=== PATIENT | male | born 1980 | race Caucasian/White ===

== ENCOUNTER → 2016-11-30 | Outpatient (CLI) | payer BC ==
[~2016-11-30] MED LIST: GADOBUTROL 10mMol/10ml INJECTION IV ONE; SALINE FLUSH 10ml SYRINGE ONE
--- NOTE | 2016-11-30 16:08 | DI ---
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 MRA imaging of the head without contrast was acquired. Maximum intensity projection (MIP) reformatted images were produced. 3-dimensional volume rendered imaging of the [place] was performed by the technologist on a dedicated workstation. Contrast: 8 mL of Gadavist Findings: MRI head: The ventricles are of normal size, shape, and contour for the patient's age. A couple tiny punctate T-2/flair white matter hyperintensities, within the normal range for age. The brain stem, cerebellum, and cerebral hemispheres otherwise have a normal morphologic appearance as well as MR signal intensity on all pulse sequences. Following intravenous administration of contrast, no areas of abnormal enhancement are evident. There are no areas of restricted diffusion on diffusion weighted imaging to suggest an acute infarct. There is no evidence of an intracranial mass lesion, intracranial hemorrhage, or hydrocephalus. The visualized portions of the orbits, calvarium, paranasal sinuses, and skull base demonstrate no significant abnormality. MRA head: The intracranial portions of the vertebral arteries, internal carotid arteries, and their major branches show no significant stenosis or other vascular anomaly. No aneurysms or vascular malformations are evident. Impression: 1. MRI head: A couple tiny white matter lesions within the normal range for the patient's age. These can be seen in patients with migraine headaches. 2. MRA head: Normal exam. No evidence of aneurysm or flow-limiting arterial stenosis. .
== END ==
LOC: IMA 14:29
PROVIDERS: ATTEND Family Medicine
DX: G44.1 Vascular headache, not elsewhere classified (principal); R03.0 Elevated blood-pressure reading, without diagnosis of hypertension; Z80.9 Family history of malignant neoplasm, unspecified
CPT/HCPCS: 70544; 70553; A9585